=== PATIENT | female | born 2000 | race Native Hawaiian/Other Pacific Islander ===

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

== ENCOUNTER 2019-03-25 18:10 | Emergency (ER) | payer OTHER ==
[~2019-03-25] VITALS: Ht 162.6 cm; Wt 52.2 kg
[2019-03-25 19:16] LABS: PLATELET COUNT 207 K/uL (152-353)
[2019-03-25 19:19] LABS: POTASSIUM 3.7 mmol/L (3.6-5.2)
[2019-03-25 21:05] VITALS: BP 116/79; TEMP 98
== END 2019-03-25 21:05 | disposition home or self-care (01) ==
LOC: ED 18:10
PROVIDERS: Emergency Medicine
DX: N73.9 Female pelvic inflammatory disease, unspecified (principal); A59.9 Trichomoniasis, unspecified
CPT/HCPCS: 36415; 80053; 81000; 81025; 82150; 83690; 85027; 87070; 87590; 96372; 99284; J0696; J1885

== ENCOUNTER 2020-04-30 17:03 | Emergency (ER) | payer OTHER ==
[~2020-04-30] VITALS: Ht 162.6 cm; Wt 52.2 kg
[2020-04-30 17:47] LABS: PLATELET COUNT 275 K/uL (152-353)
[2020-04-30 17:53] LABS: POTASSIUM 3.9 mmol/L (3.6-5.2)
[2020-04-30 19:16] VITALS: BP 110/75; TEMP 98.6
== END 2020-04-30 19:16 | disposition home or self-care (01) ==
LOC: ED 17:03
PROVIDERS: Hospitalist
DX: K21.9 Gastro-esophageal reflux disease without esophagitis (principal); R11.2 Nausea with vomiting, unspecified
CPT/HCPCS: 80053; 81000; 81025; 82150; 83690; 85027; 96360; 96375; 99284; J2405

== ENCOUNTER 2021-01-17 19:05 | Emergency (ER) | payer OTHER ==
[~2021-01-17] VITALS: Ht 162.6 cm; Wt 49.9 kg
[2021-01-17 19:45] LABS: PLATELET COUNT 147 K/uL (152-353)
[2021-01-17 21:15] VITALS: BP 101/66; TEMP 98.2
== END 2021-01-17 21:15 | disposition home or self-care (01) ==
LOC: ED 19:05
PROVIDERS: Hospitalist
DX: R10.84 Generalized abdominal pain (principal); K29.60 Other gastritis without bleeding; R11.2 Nausea with vomiting, unspecified
CPT/HCPCS: 36415; 80053; 81000; 81025; 82150; 83690; 85027; 96360; 96361; 96375; 99284; J2405

== ENCOUNTER 2021-02-04 09:11 | Outpatient (CLI) | payer OTHER | END 2021-02-04 19:35 | disposition home or self-care (01) | LOC: RAD 09:11 | PROVIDERS: ATTEND Nurse Practitioner Family | DX: M41.84 Other forms of scoliosis, thoracic region (principal) ==

== ENCOUNTER 2021-02-22 11:34 | Emergency (ER) | payer OTHER ==
[~2021-02-22] VITALS: Ht 165.1 cm; Wt 54.4 kg
[2021-02-22 12:44] LABS: PLATELET COUNT 225 K/uL (152-353)
[2021-02-22 12:51] LABS: POTASSIUM 4.5 mmol/L (3.6-5.2)
[2021-02-22 13:40] VITALS: BP 112/74; TEMP 98.9
== END 2021-02-22 13:40 | disposition home or self-care (01) ==
LOC: ED 11:34
PROVIDERS: Emergency Medicine
DX: H81.10 Benign paroxysmal vertigo, unspecified ear (principal); F41.8 Other specified anxiety disorders
CPT/HCPCS: 80048; 85027; 99283

== ENCOUNTER 2022-04-09 19:41 | Emergency (ER) | payer OTHER ==
[~2022-04-09] VITALS: Ht 165.1 cm; Wt 53.5 kg
[2022-04-09 20:23] LABS: PLATELET COUNT 262 K/uL (152-353)
[2022-04-09 20:27] LABS: POTASSIUM 3.7 mmol/L (3.6-5.2)
[2022-04-09 20:44] VITALS: BP 136/83; TEMP 98.5
== END 2022-04-09 20:50 | disposition home or self-care (01) ==
LOC: ED 19:41
PROVIDERS: Emergency Medicine
DX: R10.84 Generalized abdominal pain (principal); N93.8 Other specified abnormal uterine and vaginal bleeding
CPT/HCPCS: 36415; 80048; 85027; 99282

== ENCOUNTER 2022-11-05 14:06 | Emergency (ER) | payer OTHER ==
[~2022-11-05] VITALS: Ht 165.1 cm; Wt 52.2 kg
[2022-11-05 16:00] VITALS: BP 124/81; TEMP 98.2
== END 2022-11-05 16:00 | disposition home or self-care (01) ==
LOC: ED 14:06
DX: N94.6 Dysmenorrhea, unspecified (principal); N93.9 Abnormal uterine and vaginal bleeding, unspecified
CPT/HCPCS: 81002; 81025; 96372; 99283; J1885